=== PATIENT | male | born 1965 | race Caucasian/White ===

== ENCOUNTER 2018-05-19 08:12 | Day surgery (SDC) | payer OTHER ==
[2018-05-19] MEDS ORDERED: PROPOFOL 20 ML (10:10)
[2018-05-19] MEDS ORDERED: FENTAnyl 50 MCG/ML VIAL (10:10)
== END 2018-05-19 12:24 | disposition home or self-care (01) ==
LOC: GIL 08:12
DX: Z12.11 Encounter for screening for malignant neoplasm of colon (principal); D12.6 Benign neoplasm of colon, unspecified; K64.8 Other hemorrhoids; I10 Essential (primary) hypertension; E11.9 Type 2 diabetes mellitus without complications; G20 Parkinson's disease
CPT/HCPCS: 45385; 82962; 88312